=== PATIENT | male | born 1965 | race African-American/Black ===

== ENCOUNTER 2019-04-11 06:05 | Emergency (ER) | payer SELFPAY ==
[2019-04-11 06:57] LABS: Absolute Lymphocytes (CBC) 2.1 K/uL (0.7-4.9); Basophils % 1.9 % (0-1.3); Hematocrit 37.9 % (39.6-49.0); Lymphocytes % 31.9 % (15.3-44.8); MPV 9.8 fL (7.6-11.3); RBC Red Blood Cell Count 4.63 M/uL (4.33-5.43)
[2019-04-11 07:11] LABS: BUN Blood Urea Nitrogen 12 mg/dL (7-18); Bicarbonate 28 mmol/L (21-32); Glucose Level 136 mg/dL (74-106); Potassium 4.2 mmol/L (3.5-5.1); Sodium Level 138 mmol/L (136-145)
--- NOTE | 2019-04-11 08:25 | RAD REPORT ---
EXAM DESCRIPTION: RAD - Foot Right 3 View - 04/11/2019 7:06 am CLINICAL HISTORY: Right first toe soft tissue infection, soft tissue wound, possible osteomyelitis COMPARISON: None. FINDINGS: No bone destruction or pathologic fracture identifiable. Osteomyelitis can exist prior to radiographic bone destruction. Soft tissue wound is present with no air or foreign body seen in the soft tissues. IMPRESSION: No radiographic evidence for osteomyelitis. No air or foreign body in the soft tissues. Osteomyelitis can exist prior to radiographic bone destruction. Follow-up MR imaging of the foot can be performed as warranted.
--- NOTE | 2019-04-11 09:44 | RAD REPORT ---
EXAM DESCRIPTION: US - Extremity Venous Uni Ltd - 04/11/2019 9:33 am CLINICAL HISTORY: Right leg pain and swelling COMPARISON: None. TECHNIQUE: Real-time sonographic evaluation of the right lower extremity deep venous systems was per formed. FINDINGS: Normal compressibility, flow augmentation, phasic flow and spontaneous flow are identified in the right lower extremity common femoral, superficial femoral, popliteal and posterior tibial vei ns. No intraluminal filling defects seen. IMPRESSION: No DVT in the right lower extremity.
--- NOTE | 2019-04-11 10:04 | ER ---
Nurse's Notes [facility] Name: Brant Rivas Age: 53 yrs Sex: Male : 1965 Arrival Date: 04/11/2019 Time: 06:11 Bed 13 Private MD: Diagnosis: Open wound of ankle, foot and toes-right great toe Presentation: 04/11 06:30 Presenting complaint: Patient states: I am having pain on my right foot started a week rr5 ago. pain score 10/10. my right big toe feels like getting infected 4 months ago my right big toe started to become swollen because of the friction from the narrow boots that I wear they drain the wound then it never heal until now. Transition of care: patient was not received from another setting of care. Onset of symptoms was March 2019. Risk Assessment: Do you want to hurt yourself or someone else? Patient reports no desire to harm self or others. Initial Sepsis Screen: Does the patient meet any 2 criteria? No. Patient's initial sepsis screen is negative. Does the patient have a suspected source of infection? No. Patient's initial sepsis screen is negative. Care prior to arrival: None. 06:30 Method Of Arrival: Wheelchair rr5 06:30 Acuity: JOANN 3 rr5 Triage Assessment: 07:00 General: Appears in no apparent distress. comfortable, Behavior is calm, cooperative, bp appropriate for age. Pain: Complains of pain in left foot and right foot. EENT: No deficits noted. Neuro: No deficits noted. Cardiovascular: No deficits noted. Respiratory: No deficits noted. GI: No signs and/or symptoms were reported involving the gastrointestinal system. : No signs and/or symptoms were reported regarding the genitourinary system. Derm: Reports DIABETIC FOOT WOUND. Musculoskeletal: No deficits noted. Historical: - Allergies: 06:30 Trazodone; rr5 06:30 SHELLFISH; rr5 - Home Meds: 06:30 Lisinopril Oral [Active]; Neurontin Oral [Active]; rr5 - PMHx: 06:30 Diabetes - IDDM; Hypertension; neuropathy; rr5 - PSHx: 06:30 amputated left big and second toe; Cholecystectomy; rr5 - Immunization history:: Adult Immunizations up to date. - Social history:: Smoking status: Patient uses tobacco products, vape, Patient/guardian denies using alcohol, street drugs. - Ebola Screening: : Patient negative for fever greater than or equal to 101.5 degrees Fahrenheit, and additional compatible Ebola Virus Disease symptoms Patient denies exposure to infectious person Patient denies travel to an Ebola-affected area in the 21 days before illness onset. Screenin:40 Abuse screen: Denies threats or abuse. Denies injuries from another. Nutritional rr5 screening: No deficits noted. Tuberculosis screening: No symptoms or risk factors identified. Fall Risk IV access (20 points). Gait- Impaired (20 pts.). Total Ott Fall Scale indicates Low Risk Score (25-44 pts). Fall prevention measures have been instituted. Side Rails Up X 2 Placed close to Nursing Station Frequent Obs/Assesments occuring Family Present and informed to notify staff if they need to leave bedside As available Patient and Family Educated on Fall Prevention Program and strategies. Assessment: 06:35 General: Appears in no apparent distress. uncomfortable, Behavior is calm, cooperative, rr5 appropriate for age. 06:35 Pain: Complains of pain in right foot Pain radiates to right leg Pain currently is 10 rr5 out of 10 on a pain scale. Quality of pain is described as aching, Pain began gradually, Is intermittent. Neuro: Level of Consciousness is awake, alert, obeys commands, Oriented to person, place, time, situation, Appropriate for age. Cardiovascular: Capillary refill < 3 seconds Patient's skin is warm and dry. Respiratory: Airway is patent Respiratory effort is even, unlabored, Respiratory pattern is regular, symmetrical. GI: No signs and/or symptoms were reported involving the gastrointestinal system. : No signs and/or symptoms were reported regarding the genitourinary system. EENT: No signs and/or symptoms were reported regarding the EENT system. Derm: Skin is intact, Skin temperature is warm Wound noted plantar aspect of right first toe Wound is diabetic wound. Musculoskeletal: Amputation of plantar aspect of left first toe, left second toe and Left second toenail. Circulation, motion, and sensation intact. Capillary refill < 3 seconds, Reports numbness in right foot, left foot, right leg and left leg pain in right foot Pain is 10 out of 10 on a pain scale. 07:00 Reassessment: RECD REPORT FROM HERMES CHAPMAN. 53YO MALE P/W RLE PAIN 2/2 DIABETIC FOOT. bp 08:57 Reassessment: ALL CURRENT ORDERS COMPLETED, DISPO PENDING. bp 09:23 Reassessment: PT TO U/S. bp 10:18 Reassessment: PT D/C HOME AMBULATORY WITH FAMILY, DX WITH OPEN WOUND OF R GREAT TOE. bp Vital Signs: 06:35 BP 150 / 93; Pulse 70; Resp 19; Temp 97.9; Pulse Ox 100% ; Weight 102.06 kg; Height 6 rr5 ft. 0 in. (182.88 cm); Pain 10/10; 07:30 BP 149 / 106; Pulse 66; Resp 16; Pulse Ox 100% ; bp 08:57 BP 158 / 114; Pulse 69; Resp 17; Pulse Ox 100% ; bp 10:18 BP 151 / 106; Pulse 71; Resp 17; Temp 98; Pulse Ox 100% ; bp 06:35 Body Mass Index 30.52 (102.06 kg, 182.88 cm) rr5 ED Course: 06:11 Patient arrived in ED. ag3 06:17 Elia Nam RN is Primary Nurse. rr5 06:19 Maria Victoria Truong FNP-C is PHCP. kb 06:19 Jones Louie MD is Attending Physician. kb 06:35 Patient has correct armband on for positive identification. Placed in gown. Bed in low rr5 position. Call light in reach. awake overnight monitor on. Pulse ox on. NIBP on. 06:37 Triage completed. rr5 06:40 Arm band placed on. rr5 06:50 Inserted saline lock: 20 gauge in right antecubital area, using aseptic technique. jd3 Blood collected. 06:50 Initial lab(s) drawn, by me, sent to lab. First set of blood cultures drawn by me. jd3 07:06 X-ray completed. Portable x-ray completed in exam room. Patient tolerated procedure sw well. 07:06 Foot Right 3 View XRAY In Process Unspecified. EDMS 09:34 US Extremity Venous Unilateral Ltd In Process Unspecified. EDMS 10:18 No provider procedures requiring assistance completed. IV discontinued, intact, bp bleeding controlled, No redness/swelling at site. Pressure dressing applied. Administered Medications: No medications were administered Outcome: 09:34 Discharge ordered by . kb 10:19 Discharged to home ambulatory, with family. bp 10:19 Condition: stable 10:19 Discharge instructions given to patient, Instructed on discharge instructions, follow up and referral plans. medication usage, Demonstrated understanding of instructions, follow-up care, medications, Prescriptions given X 2. 10:19 Patient left the ED. bp Signatures: Dispatcher [employer] EDMD Maria Victoria Truong, OIL FIELD TECHNICIAN-C OIL FIELD TECHNICIAN-Ckb Audrey Cordova Jonathon, RN RN jd3 Davie Cordero RN RN bp Juli Hill ag3 Elia Nam, RN RN rr5
--- NOTE | 2019-04-11 10:05 | EDPHYS ---
Physician Documentation [facility] Name: Brant Rivas Age: 53 yrs Sex: Male : 1965 Arrival Date: 04/11/2019 Time: 06:11 Bed 13 Private MD: ED Physician Jones Louie HPI: 04/11 06:49 This 53 yrs old Male presents to ER via Wheelchair with complaints of Foot Pain. kb 06:49 The patient presents with pain, ulceration to great toe. The complaints affect the kb plantar aspect of right first toe. Context: The problem was sustained at home, the patient can fully bear weight, the patient is able to ambulate. Onset: The symptoms/episode began/occurred 4 month(s) ago. Modifying factors: The symptoms are alleviated by nothing, the symptoms are aggravated by nothing. Associated signs and symptoms: Pertinent positives: swelling, Pertinent negatives: calf tenderness, fever, nausea, numbness, rash, tingling, vomiting, warmth, weakness. Severity of symptoms: At their worst the symptoms were moderate, in the emergency department the symptoms are unchanged. The patient has not experienced similar symptoms in the past. The patient has not recently seen a physician. Pt reports he has had a wound on the bottom of his right great toe for 4 months. States his right leg swells intermittently as well. Reports drainage that started recently so that is what made him come in now. . Historical: - Allergies: 06:30 Trazodone; rr5 06:30 SHELLFISH; rr5 - Home Meds: 06:30 Lisinopril Oral [Active]; Neurontin Oral [Active]; rr5 - PMHx: 06:30 Diabetes - IDDM; Hypertension; neuropathy; rr5 - PSHx: 06:30 amputated left big and second toe; Cholecystectomy; rr5 - Immunization history:: Adult Immunizations up to date. - Social history:: Smoking status: Patient uses tobacco products, vape, Patient/guardian denies using alcohol, street drugs. - Ebola Screening: : Patient negative for fever greater than or equal to 101.5 degrees Fahrenheit, and additional compatible Ebola Virus Disease symptoms Patient denies exposure to infectious person Patient denies travel to an Ebola-affected area in the 21 days before illness onset. ROS: 06:51 Constitutional: Negative for fever, chills, and weight loss, ENT: Negative for injury, kb pain, and discharge, Neck: Negative for injury, pain, and swelling, Cardiovascular: Negative for chest pain, palpitations, and edema, Respiratory: Negative for shortness of breath, cough, wheezing, and pleuritic chest pain, Abdomen/GI: Negative for abdominal pain, nausea, vomiting, diarrhea, and constipation, Back: Negative for injury and pain, Neuro: Negative for headache, weakness, numbness, tingling, and seizure. 06:51 Skin: Positive for ulceration, of the plantar aspect of right first toe. Exam: 06:51 Constitutional: This is a well developed, well nourished patient who is awake, alert, kb and in no acute distress. Head/Face: Normocephalic, atraumatic. Chest/axilla: Normal chest wall appearance and motion. Nontender with no deformity. No lesions are appreciated. Cardiovascular: Regular rate and rhythm with a normal S1 and S2. No gallops, murmurs, or rubs. Normal PMI, no JVD. No pulse deficits. Respiratory: Lungs have equal breath sounds bilaterally, clear to auscultation and percussion. No rales, rhonchi or wheezes noted. No increased work of breathing, no retractions or nasal flaring. Abdomen/GI: Soft, non-tender, with normal bowel sounds. No distension or tympany. No guarding or rebound. No evidence of tenderness throughout. MS/ Extremity: Pulses equal, no cyanosis. Neurovascular intact. Full, normal range of motion. Neuro: Awake and alert, GCS 15, oriented to person, place, time, and situation. Cranial nerves II-XII grossly intact. Motor strength 5/5 in all extremities. Sensory grossly intact. Cerebellar exam normal. Normal gait. 06:51 Skin: lesion(s), noted, and can be described as ulcerated, located on the plantar aspect of right first toe, ulcerated area is clean, does not appear to be infected. Pt has been doing wound care at home.. 06:52 Musculoskeletal/extremity: partial amputation of left great toe noted. Pt reports he kb had osteo in that toe . Vital Signs: 06:35 BP 150 / 93; Pulse 70; Resp 19; Temp 97.9; Pulse Ox 100% ; Weight 102.06 kg; Height 6 rr5 ft. 0 in. (182.88 cm); Pain 10/10; 07:30 BP 149 / 106; Pulse 66; Resp 16; Pulse Ox 100% ; bp 08:57 BP 158 / 114; Pulse 69; Resp 17; Pulse Ox 100% ; bp 10:18 BP 151 / 106; Pulse 71; Resp 17; Temp 98; Pulse Ox 100% ; bp 06:35 Body Mass Index 30.52 (102.06 kg, 182.88 cm) rr5 MDM: 06:19 Patient medically screened. kb 06:33 Data reviewed: vital signs, nurses notes. Data interpreted: Pulse oximetry: on room air kb is 100 %. Interpretation: normal. 08:43 ED course: awaiting US. kb 09:33 Counseling: I had a detailed discussion with the patient and/or guardian regarding: the kb historical points, exam findings, and any diagnostic results supporting the discharge/admit diagnosis, lab results, radiology results, the need for outpatient follow up, a family practitioner, a general surgeon, to return to the emergency department if symptoms worsen or persist or if there are any questions or concerns that arise at home. 04/11 06:30 Order name: CBC with Diff; Complete Time: 07:00 kb 04/11 06:30 Order name: Basic Metabolic Panel; Complete Time: 07:12 kb 04/11 06:30 Order name: Foot Right 3 View XRAY; Complete Time: 08:28 kb 04/11 06:30 Order name: IV Start; Complete Time: 06:52 kb 04/11 06:30 Order name: Blood Culture Adult (2) kb 04/11 06:30 Order name: US Extremity Venous Unilateral Ltd; Complete Time: 10:05 kb Administered Medications: No medications were administered Disposition: 04/12 07:22 Co-signature as Attending Physician, Jones Louie MD I agree with the assessment and kdr plan of care. Disposition: 04/11/19 09:34 Discharged to Home. Impression: Open wound of ankle, foot and toes - right great toe. - Condition is Stable. - Discharge Instructions: Wound Care. - Prescriptions for Augmentin 875- 125 mg Oral Tablet - take 1 tablet by ORAL route every 12 hours for 10 days; 20 tablet. Levaquin 500 mg Oral Tablet - take 1 tablet by ORAL route once daily for 10 days; 10 tablet. - Work release form, Medication Reconciliation Form, Thank You Letter, Antibiotic Education, Prescription Opioid Use form. - Follow up: Emergency Department; When: As needed; Reason: Worsening of condition. Follow up: Private Physician; When: 2 - 3 days; Reason: Recheck today's complaints, Continuance of care, Re-evaluation by your physician. Signatures: Dispatcher [employer] EDMS Maria Victoria Truong, MATERIAL WORKER-C MATERIAL WORKER-Ckb Jones Louie MD MD [facility] Davie Cordero RN RN bp Elia Nam RN RN rr5 Corrections: (The following items were deleted from the chart) 04/11 08:30 06:51 Skin: lesion(s), noted, and can be described as ulcerated, located on the plantar kb aspect of right first toe, kb 10:19 09:34 04/11/2019 09:34 Discharged to Home. Impression: Open wound of ankle, foot and bp toes - right great toe. Condition is Stable. Forms are Medication Reconciliation Form, Thank You Letter, Antibiotic Education, Prescription Opioid Use. Follow up: Emergency Department; When: As needed; Reason: Worsening of condition. Follow up: Private Physician; When: 2 - 3 days; Reason: Recheck today's complaints, Continuance of care, Re-evaluation by your physician. kb
== END 2019-04-11 10:19 | disposition home or self-care (01) ==
LOC: ER 06:05
DX: L97.519 Non-pressure chronic ulcer of other part of right foot with unspecified severity (principal); I10 Essential (primary) hypertension; E11.9 Type 2 diabetes mellitus without complications; Z72.0 Tobacco use; Z88.5 Allergy status to narcotic agent; Z91.013 Allergy to seafood; Z89.422 Acquired absence of other left toe(s)
CPT/HCPCS: 36415; 80048; 85025; 87040; 93971; 99284

== ENCOUNTER 2019-04-22 09:14 | Emergency (ER) | payer SELFPAY ==
[2019-04-22] MEDS ORDERED: LEVALBUTEROL 1.25 MG/3 ML NEB ONE (09:41)
[2019-04-22 09:46] LABS: Basophils % 1.3 % (0-1.3); Hematocrit 35.9 % (39.6-49.0); MPV 10.8 fL (7.6-11.3); RBC Red Blood Cell Count 4.42 M/uL (4.33-5.43)
[2019-04-22 10:06] LABS: BUN Blood Urea Nitrogen 10 mg/dL (7-18); Bicarbonate 25 mmol/L (21-32); Glucose Level 230 mg/dL (74-106); NT PRO-BNP 184 pg/mL (<125); Potassium 3.9 mmol/L (3.5-5.1); Sodium Level 139 mmol/L (136-145); Troponin (Emerg Dept Use Only) < 0.02 ng/mL (0.0-0.045)
--- NOTE | 2019-04-22 10:42 | RAD REPORT ---
EXAM DESCRIPTION: Kev Single View04/22/2019 10:35 am CLINICAL HISTORY: Cough COMPARISON: None FINDINGS: The lungs appear clear of acute infiltrate. The heart is normal size IMPRESSION: No acute abnormalities displayed
--- NOTE | 2019-04-22 11:27 | RAD REPORT ---
EXAM DESCRIPTION: CT - Chest For Pe Angio - 04/22/2019 11:20 am CLINICAL HISTORY: Chest pain. DYSPNEA COMPARISON: No comparisons TECHNIQUE: CT angiogram of the pulmonary arteries was performed with MIP. All CT scans are performed using dose optimization technique as appropriate and may include automated exposure control or mA/KV adjustment according to patient size. FINDINGS: No evidence of pulmonary thromboembolism. No acute aortic finding demonstrated. The lungs are clear. No significant pericardial or pleural fluid. No concerning bony finding. IMPRESSION: No evidence of pulmonary thromboembolism. No acute lung findings.
--- NOTE | 2019-04-22 11:49 | EDPHYS ---
Physician Documentation [facility] Name: Brant Rivas Age: 53 yrs Sex: Male : 1965 Arrival Date: 04/22/2019 Time: :16 Bed 19 Private MD: ED Physician Godfrey Kang HPI: 04/22 10:04 This 53 yrs old Black Male presents to ER via Ambulatory with complaints of Chest Pain. rn 10:04 The patient or guardian reports chest pain that is located primarily in the substernal rn area. Onset: last night. The pain does not radiate. Associated signs and symptoms: Pertinent positives: cough, shortness of breath, Pertinent negatives: abdominal pain, dizziness, lightheadedness, palpitations, syncope, vomiting. The chest pain is described as sharp. Duration: The patient or guardian reports multiple episodes, that are intermittent. Modifying factors: The symptoms are alleviated by nothing. the symptoms are aggravated by deep breath. Severity of pain: At its worst the pain was mild in the emergency department the pain is unchanged. The patient has not experienced similar symptoms in the past. Reports productive cough and sharp chest pain, began last night, no hemoptysis, no trauma, vapes and heard about the vaping related deaths, when felt chest pain came in for evaluation. Non-radiating, not worse with exertion. + SOB.. Historical: - Allergies: 09:31 SHELLFISH; sg 09:31 Trazodone; sg - Home Meds: 09:31 lisinopril Oral [Active]; Neurontin Oral [Active]; sg - PMHx: 09:31 Diabetes - IDDM; Hypertension; neuropathy; sg - PSHx: 09:31 amputated left big and second toe; Cholecystectomy; sg - Immunization history:: Adult Immunizations not up to date. - Social history:: Smoking status: Patient/guardian denies using tobacco. - Ebola Screening: : Patient negative for fever greater than or equal to 101.5 degrees Fahrenheit, and additional compatible Ebola Virus Disease symptoms Patient denies exposure to infectious person Patient denies travel to an Ebola-affected area in the 21 days before illness onset No symptoms or risks identified at this time. - Family history:: not pertinent. - Hospitalizations: : No recent hospitalization is reported. ROS: 10:04 Constitutional: Negative for fever, chills, and weight loss, Eyes: Negative for injury, rn pain, redness, and discharge, Neck: Negative for injury, pain, and swelling, Cardiovascular: Negative for palpitations, and edema, Respiratory: Negative for wheezing Abdomen/GI: Negative for abdominal pain, nausea, vomiting, diarrhea, and constipation, MS/Extremity: Negative for injury and deformity, Skin: Negative for injury, rash, and discoloration, Neuro: Negative for headache, weakness, numbness, tingling, and seizure. Exam: 10:04 Constitutional: This is a well developed, well nourished patient who is awake, alert, rn seems anxious Head/Face: Normocephalic, atraumatic. Eyes: Pupils equal round and reactive to light, extra-ocular motions intact. Lids and lashes normal. Conjunctiva and sclera are non-icteric and not injected. Cornea within normal limits. Periorbital areas with no swelling, redness, or edema. ENT: MMM Cardiovascular: Regular rate and rhythm. No pulse deficits. Respiratory: Faint wheezing bilaterally. No increased work of breathing, no retractions or nasal flaring. Abdomen/GI: soft, non-tender MS/ Extremity: Pulses equal, no cyanosis. Neurovascular intact. Full, normal range of motion. Equal circumference. Neuro: Awake and alert, GCS 15, oriented to person, place, time, and situation. Cranial nerves II-XII grossly intact. Motor strength 5/5 in all extremities. Sensory grossly intact. Cerebellar exam normal. Vital Signs: 09:25 BP 140 / 97; Pulse 72; Resp 18; Temp 98.7(O); Pulse Ox 100% on R/A; mh5 11:30 BP 142 / 77; Pulse 80; Resp 16; Pulse Ox 100% on R/A; sg MDM: 09:24 Patient medically screened. rn 11:45 Differential diagnosis: anxiety, chest wall pain, costochondritis, pleurisy, pneumonia, rn pneumothorax, pulmonary embolus. Data reviewed: vital signs, nurses notes, lab test result(s), EKG, radiologic studies, CT scan, plain films, and as a result, I will discharge patient. Counseling: I had a detailed discussion with the patient and/or guardian regarding: the historical points, exam findings, and any diagnostic results supporting the discharge/admit diagnosis, lab results, radiology results, the need for outpatient follow up, to return to the emergency department if symptoms worsen or persist or if there are any questions or concerns that arise at home. Response to treatment: the patient's symptoms have mildly improved after treatment, and as a result, I will discharge patient. Special discussion: I discussed with the patient/guardian in detail that at this point there is no indication for admission to the hospital. It is understood, however, that if the symptoms persist or worsen the patient needs to return immediately for re-evaluation. ED course: CT PE negative, afebrile, no pneumonia. Will dc home with inhaler prn, and return precautions. . 04/22 09:30 Order name: Basic Metabolic Panel; Complete Time: 10:24 rn 04/22 09:30 Order name: CBC with Diff; Complete Time: 10:24 rn 04/22 09:30 Order name: NT PRO-BNP; Complete Time: 10:24 rn 04/22 09:30 Order name: Troponin (emerg Dept Use Only); Complete Time: 10:24 rn 04/22 09:30 Order name: XRAY Chest (1 view); Complete Time: 10:59 rn 04/22 11:00 Order name: CT Chest For PE Angio; Complete Time: 11:45 rn 04/22 09:30 Order name: EKG; Complete Time: 09:32 rn 04/22 09:30 Order name: Cardiac monitoring; Complete Time: 09:45 rn 04/22 09:30 Order name: EKG - Nurse/Tech; Complete Time: :46 rn 04/22 09:30 Order name: IV Saline Lock; Complete Time: :46 rn 04/22 09:30 Order name: Labs collected and sent; Complete Time: :46 rn 04/22 09:30 Order name: O2 Per Protocol; Complete Time: 09:46 rn 04/22 09:30 Order name: O2 Sat Monitoring; Complete Time: 10:28 rn Administered Medications: 09:46 Drug: Xopenex 1.25 mg Route: Inhalation; sg Disposition: 04/22/19 11:47 Discharged to Home. Impression: Chest pain, unspecified, Dyspnea, unspecified. - Condition is Stable. - Discharge Instructions: Nonspecific Chest Pain, Pleurisy, Shortness of Breath, Steps to Quit Smoking. - Prescriptions for Albuterol Sulfate 90 mcg/actuation - inhale 1-2 puff by INHALATION route every 4-6 hours; 1 Inhaler. - Work release form, Medication Reconciliation Form, Thank You Letter, Antibiotic Education, Prescription Opioid Use form. - Follow up: Private Physician; When: As needed; Reason: Recheck today's complaints, Re-evaluation by your physician. - Problem is new. - Symptoms have improved. Signatures: Dispatcher [employer] EDLarry Weber RN RN sg Nieto, Roman, MD MD journeyman level acoustic analyst: (The following items were deleted from the chart) 12:36 11:47 04/22/2019 11:47 Discharged to Home. Impression: Chest pain, unspecified; sg Dyspnea, unspecified. Condition is Stable. Forms are Medication Reconciliation Form, Thank You Letter, Antibiotic Education, Prescription Opioid Use. Follow up: Private Physician; When: As needed; Reason: Recheck today's complaints, Re-evaluation by your physician. Problem is new. Symptoms have improved. rn
--- NOTE | 2019-04-22 11:49 | ER ---
Nurse's Notes [facility] Name: Brant Rivas Age: 53 yrs Sex: Male : 1965 Arrival Date: 04/22/2019 Time: 09:16 Bed 19 Private MD: Diagnosis: Chest pain, unspecified;Dyspnea, unspecified Presentation: 04/22 09:28 Presenting complaint: Patient states: productive cough that began over night, reports sg kept him awake most of the night, reports chills but denies fever that he knows of, reports pain in chest with cough, denies pain at rest or on exertion, reports pain in chest only with cough, has had trouble taking deep breaths, reports having increased urinary output but is convinced it is due to his diabetes. Transition of care: patient was not received from another setting of care. Onset of symptoms was April 22, 2019. Risk Assessment: Do you want to hurt yourself or someone else? Patient reports no desire to harm self or others. Initial Sepsis Screen: Does the patient meet any 2 criteria? No. Patient's initial sepsis screen is negative. Does the patient have a suspected source of infection? No. Patient's initial sepsis screen is negative. Care prior to arrival: None. 09:28 Method Of Arrival: Ambulatory sg 09:28 Acuity: JOANN 3 sg Historical: - Allergies: 09:31 SHELLFISH; sg 09:31 Trazodone; sg - Home Meds: 09:31 lisinopril Oral [Active]; Neurontin Oral [Active]; sg - PMHx: 09:31 Diabetes - IDDM; Hypertension; neuropathy; sg - PSHx: 09:31 amputated left big and second toe; Cholecystectomy; sg - Immunization history:: Adult Immunizations not up to date. - Social history:: Smoking status: Patient/guardian denies using tobacco. - Ebola Screening: : Patient negative for fever greater than or equal to 101.5 degrees Fahrenheit, and additional compatible Ebola Virus Disease symptoms Patient denies exposure to infectious person Patient denies travel to an Ebola-affected area in the 21 days before illness onset No symptoms or risks identified at this time. - Family history:: not pertinent. - Hospitalizations: : No recent hospitalization is reported. Assessment: 09:30 General: Appears in no apparent distress. comfortable, well groomed, well developed, sg well nourished, Behavior is cooperative, appropriate for age. Pain: Denies pain. Neuro: Level of Consciousness is awake, alert, obeys commands, Oriented to person, place, time, Airport Control Operator are equal bilaterally Moves all extremities. Gait is steady, Speech is normal, Facial symmetry appears normal. Cardiovascular: Heart tones S1 S2 present Capillary refill is brisk in bilateral fingers Patient's skin is warm and dry. Chest pain is denied. Respiratory: Reports cough that is productive, persistent pain with cough Airway is patent Respiratory effort is even, unlabored, Respiratory pattern is regular, symmetrical, Breath sounds are clear. GI: Abdomen is round non-distended, Reports normal bowel habits, tolerance of fluids, tolerance of food. : Reports urinary frequency, for several years. EENT: No signs and/or symptoms were reported regarding the EENT system. Derm: Skin is pink, warm \T\ dry. Musculoskeletal: Circulation, motion, and sensation intact. Range of motion: intact in all extremities. Vital Signs: 09:25 BP 140 / 97; Pulse 72; Resp 18; Temp 98.7(O); Pulse Ox 100% on R/A; mh5 11:30 BP 142 / 77; Pulse 80; Resp 16; Pulse Ox 100% on R/A; sg ED Course: 09:16 Patient arrived in ED. rg4 09:24 Godfrey Kang MD is Attending Physician. rn 09:25 Patient has correct armband on for positive identification. Bed in low position. Call 5 light in reach. case monitor on. Pulse ox on. NIBP on. 09:27 Larry Chapman, RN is Primary Nurse. sg 09:29 Triage completed. sg 09:30 No provider procedures requiring assistance completed. Initial lab(s) drawn, by me, sg sent to lab. Inserted saline lock: 20 gauge in right antecubital area, using aseptic technique. Blood collected. Patient maintains SpO2 saturation greater than 95% on room air. 09:32 EKG done, by customer data technician. reviewed by Godfrey Kang MD. at1 10:37 XRAY Chest (1 view) In Process Unspecified. EDMS 11:24 CT Chest For PE Angio In Process Unspecified. EDMS 12:46 IV discontinued, intact, bleeding controlled, No redness/swelling at site. Pressure sg dressing applied. Administered Medications: 09:46 Drug: Xopenex 1.25 mg Route: Inhalation; sg Outcome: 11:47 Discharge ordered by . rn 12:30 Discharged to home ambulatory, with family. sg 12:30 Condition: good 12:30 Discharge instructions given to patient, family, Instructed on discharge instructions, follow up and referral plans. medication usage, safety practices, Demonstrated understanding of instructions, follow-up care, medications, Prescriptions given X 1. 12:36 Patient left the ED. sg Signatures: Dispatcher [employer] EDLarry Weber RN RN sg Nieto, Roman, MD MD rn Gonzales, Amanda, sales team recruiter EKG Tat1 Mary Thurston rg4 Migdalai Sandoval 5
[2019-04-22 12:55] VITALS: BP 140/97; TEMP 98.7; O2SAT 100
--- NOTE | 2019-04-22 20:21 | EKG ---
Test Date: 2019-04-22 Test Time: 09:27:59 Interventional Technologist: AMENA MEASUREMENT RESULTS: Intervals: Rate: 73 ME: 190 QRSD: 104 QT: 376 QTc: 414 [place]: P: 65 ME: 190 QRS: -77 T: -2 INTERPRETIVE STATEMENTS: Normal sinus rhythm Low voltage QRS Left anterior fascicular block Septal infarct, age undetermined Abnormal ECG No previous ECG available for comparison Electronically Signed On 04-22-19 20:18:45 CDT by Kleber Seo
== END 2019-04-22 12:36 | disposition home or self-care (01) ==
LOC: ER 09:14
DX: R06.00 Dyspnea, unspecified (principal); I10 Essential (primary) hypertension; E11.40 Type 2 diabetes mellitus with diabetic neuropathy, unspecified; Z88.5 Allergy status to narcotic agent; Z91.013 Allergy to seafood
CPT/HCPCS: 36415; 71045; 71275; 80048; 83880; 84484; 85025; 93005; 99285; Q9967